=== PATIENT | female | born 1985 | race Caucasian/White ===

== ENCOUNTER 2016-08-20 09:54 | Observation (INO) | payer BC ==
[2016-08-13 15:07] LABS: BASOPHILS 0.2 %; BASOPHILS ABSOLUTE 0.02 10/3/uL (0.0-0.16); EOSINOPHILS 0.8 %; EOSINOPHILS ABSOLUTE 0.08 10/3/uL (0.0-0.53); HEMATOCRIT 37.3 % (36.0-48.0); HEMOGLOBIN 12.1 g/dL (12.0-16.0); IMMATURE GRANULOCYTES 0.2 %; IMMATURE GRANULOCYTES ABSOLUTE 0.02 10/3/uL (0.0-0.11); LYMPHOCYTES 19.3 %; MEAN CORPUS HGB CONC 32.4 g/dL (32.0-36.0); MEAN CORPUSCULAR HEMOGLOB 28.5 pg (26.0-34.0); MEAN PLATELET VOLUME 12.8 fL (9.2-13.0); MONOCYTES ABSOLUTE 0.69 10/3/uL (0.21-1.20); NEUTROPHILS 72.5 %; NEUTROPHILS ABSOLUTE 7.12 10/3/uL (2.02-8.40); PLATELET COUNT 217 10/3/uL (150-400); RBC DISTRIBUTION WIDTH 13.2 % (12.0-16.0); RED CELL COUNT 4.24 10/6/uL (4.0-5.6)
[2016-08-13 15:08] LABS: MANUAL DIFF NO %; WHITE BLOOD CELLS 9.8 10/3/uL (4.5-10.5)
[2016-08-13 15:14] LABS: INTERNATIONAL NORMAL RATI 1.1 UNITS (-); PARTIAL THROMBO TIME 30.2 SEC (22.5-37.2); PROTIME (NOT ORD) 13.8 SEC (12.0-14.5)
[2016-08-13 15:16] LABS: CHLORIDE, SERUM 109 MMOL/L (96-112); CO2 (CARBON DIOXIDE) 24 MMOL/L (24-34); CREATININE 0.65 MG/DL (0.55-1.02); GFR AFRICAN AMERICAN 135 ML/MIN (>=60); GFR NON AFRICAN AMERICAN 117 ML/MIN (>=60); GLUCOSE, SERUM 86 MG/DL (60-99); POTASSIUM, SERUM 4.2 MMOL/L (3.5-5.3); SODIUM, SERUM 142 MMOL/L (135-148)
[2016-08-13 15:17] LABS: BUN (BLOOD UREA NITROGEN) 8 MG/DL (6-23)
[2016-08-13 15:54] LABS: ASCORBIC ACID (UR NOT ORDER) NEG (NEG); BILIRUBIN, URINE NEGATIVE (NEG); KETONE, URINE NEGATIVE (NEG); LEUKOCYTE ESTERASE(NOT OR LARGE (NEG); WBC (NOT ORDERED) (RFLEX) 56 (0-5)
--- NOTE | ~2016-08-20 | OP ---
Record Of Operation [facility] [address] [place]. [address] NAME: JUANA MULLER : 81 STATUS : ADM Montrell PAT#: [id number] AGE: 31 ADM/REG DATE : 08/20/16 MR#: [id number] REPORT SERV DATE: 08/20/16 DICTATED BY: СЕРГЕЙ LOVING DATE: 08/20/16 REPORT STATUS : Draft TRANSCRIBED BY: MODL DATE: 08/20/16 DATE OF PROCEDURE: 08/20/2016 PREOPERATIVE DIAGNOSIS: A 2.2 cm right renal calculus. POSTOPERATIVE DIAGNOSIS: A 2.2 cm right renal calculus. PROCEDURES: 1. Right percutaneous nephrolithotomy with in situ laser lithotripsy. 2. Right antegrade ureteral stent placement. 3. Right nephrostomy tube exchange. 4. Right nephrostogram. SURGEON: Сергей Loving M.D. ANESTHESIA: General. ESTIMATED BLOOD LOSS: Estimated at 75 mL. FLUID REPLACEMENT: 1.1 L crystalloid. DRAINS: 1. A 6-Kenyan 26 cm double-J right ureteral stent with the strings removed. 2. An 18-Kenyan Abie style catheter as a right nephrostomy tube with 4 mL of sterile water inflating the catheter balloon. 3. A 16-Kenyan Loving catheter per urethra. INDICATION: A 31-year-old white female with a symptomatic 0.2 cm right renal calculus. TECHNIQUE: The patient identified and consents obtained. The Radiology Department takes her to the Radiology suite where she had a right nephroureteral tube placed through a midpole calyx. It was a 5-Kenyan open-ended catheter, type 2. She was kept asleep and brought to the operating room. She was laid in a prone position and appropriately padded. A Loving catheter was placed and right flank and back prepped and draped in usual sterile fashion. Under fluoroscopy, a 0.35 Amplatz superstiff wire was passed down the right nephroureteral tube and into the bladder. I then removed the nephroureteral tube and advanced a Tanja exchange catheter over the wire. I removed the inner core of the lumen exchange catheter, put a second 0.35 Amplatz Super Stiff wire down into the bladder. I removed a Tanja catheter. I incised the skin where the wires entered by 1.5 cm. I then advanced a NephroMax nephrostomy tract balloon dilator over one of the wires and positioned the tip fluoroscopically in the renal pelvis. I then dilated the tract by inflating the balloon up to 16 atmospheres and held it there for 5 minutes. I then advanced the 25-Kenyan plastic sheath over the balloon and the tip of it was positioned in the renal pelvis. I then released the balloon and removed it leaving the wires behind. I advanced the rigid nephroscope into the kidney. The stone was identified. It was Record Of Operation [facility] [address] [place]. [address] NAME: JUANA MULLER : 81 STATUS : ADM Montrell PAT#: [id number] AGE: 31 ADM/REG DATE : 08/20/16 MR#: [id number] REPORT SERV DATE: 08/20/16 DICTATED BY: СЕРГЕЙ LOVING DATE: 08/20/16 REPORT STATUS : Draft TRANSCRIBED BY: MODL DATE: 08/20/16 occupying the renal pelvis on the lower pole calyx. I began by using the ultrasonic Lithotripter. This basically just ground the stone and it was very hard. I then used the lithoclast and broke the stone into fragments, and then began extracting the fragments. I used intermittent fluoroscopy to remain focused on the stone fragments. It was difficult getting to the last bit of the stone in the lower pole calyx, but I was able to get it all removed. The stone is collected and will be sent for chemical analysis. When completed, I had inspected the entire renal pelvis, lower pole calyxes, and under fluoroscopy saw no stone fragments. I back loaded the rigid nephroscope onto the wire and over the wire, positioned a 6-Kenyan 26 cm double-J right ureteral stent. The distal end was seen coiled in the bladder under fluoroscopy and the proximal end was coiled under direct vision. I removed the strings and wire. I removed the nephroscope and through the sheath placed an 18-Kenyan Abie style catheter. Tip of the catheter balloon was in the renal pelvis. I filled the catheter balloon with 5 mL of sterile water. I then performed nephrostogram. I had to remove approximately 2 mL out of the catheter balloon to allow drainage of the upper pole. When completed, however, I had good positioning of the tube with allowing maximum drainage of the kidney. I removed the sheath and sutured the tube to the skin with 2-0 Prolene. I removed the safety wire. I did one more nephrostogram and the tube was in position, draining well, antegrade with no signs of extravasation. The dressings were applied. The procedure was terminated. The patient was returned [facility], awakened, taken to the recovery unit in stable and satisfactory condition. PF/MODL Сергей Loving M.D. / [id number] CC: Сергей Loving M.D.
[~2016-08-20 09:54] MED LIST: CLARIT10 PO; MULTIVIT/MIN PO; NORCO1 TA1 PO; T PO; ZOFRAN4 PO
[2016-08-21] MEDS ORDERED: NORCO1 TA1 PO (08:49)
[2016-08-26 13:00] LABS: SOURCE OF STONE Right Kidney (()); STONE COMPOSITION TWO DNR (())
== END 2016-08-21 14:43 | disposition home or self-care (01) ==
LOC: PRET 09:54 → RADHOLD 10:00 → 4SO 16:54
PROVIDERS: Urology
PROC: 0T25X0Z Change Drainage Device in Kidney, External Approach (ICD-10-PCS; 2016-08-20)
PROC: 0TC03ZZ Extirpation of Matter from Right Kidney, Percutaneous Approach (ICD-10-PCS; principal; 2016-08-20 14:45)
DX: N20.0 Calculus of kidney (principal); M41.9 Scoliosis, unspecified; Z79.891 Long term (current) use of opiate analgesic; Z79.2 Long term (current) use of antibiotics; Z87.891 Personal history of nicotine dependence; Z79.899 Other long term (current) drug therapy; Z98.890 Other specified postprocedural states
CPT/HCPCS: 50395; 50433; 80048; 81001; 82365; 84703; 85025; 85610; 85730; 87086; 96374; 96375; 96376; A9270-GY; C1726; C1769; C1887; C1894; C2617; G0378; J1170; J1956; J2250; J2270; J2405; J2550; J2710; J3010; Q9967